=== PATIENT | female | born 1995 | race Caucasian/White ===

== ENCOUNTER 2020-07-09 19:02 | Emergency (ER) | payer MEDICAID, OTHER ==
[~2020-07-09] VITALS: Ht 175.3 cm; Wt 65.4 kg
--- NOTE | 2020-07-09 19:29 | NUR ---
THIS IS A 25F THAT COMES IN WITH HER SPOUSE. PT IS 11WKS AND HAS BEEN BLEEDING FOR A COUPLE OF DAYS. PT NOTES THAT IT HAS WORSENED TODAY AND HAS BEEN CRAMPING LIKE PERIOD CRAMPS. PT REPORTS SOME CLOTTING. PT RESTING ON KUSHAL ESTRADA
[2020-07-09 20:15] LABS: ALANINE AMINOTRANSFERASE 23 U/L (12-78); ALBUMIN 3.9 g/dL (3.4-5.0); ANION GAP 8 mmol/L (5-15); CHLORIDE 107 mmol/L (98-107); CREATININE 0.58 mg/dL (0.55-1.02)
[2020-07-09 20:18] LABS: BASOPHILS % (AUTO) 0 % (0-1); EOSINOPHILS % (AUTO) 1 % (1-7); LYMPHOCYTES % (AUTO) 29 % (22-44); MEAN CORPUSCULAR HEMOGLOBIN 32.3 pg (27.0-34.8); MEAN CORPUSCULAR HGB CONC 34.3 g/dL (32.4-35.8); MEAN PLATELET VOLUME 9.2 fL (7.4-10.4); MONOCYTES % (AUTO) 9 % (2-9); NEUTROPHILS % (AUTO) 61 % (42-75); PLATELET COUNT 200 x10^3/uL (130-400); RED BLOOD COUNT 4.19 x10^6/uL (3.82-5.3); RED CELL DISTRIBUTION WIDTH 12.1 % (9.6-15.2)
[2020-07-09 20:20] LABS: MD NO
--- NOTE | 2020-07-09 20:30 | NUR ---
PER NISA PT IS RH- AND WILL PREPARE RHOGAM
[2020-07-09 20:35] LABS: ALKALINE PHOSPHATASE 38 U/L (45-117); BILIRUBIN,TOTAL 0.5 mg/dL (0.2-1.0); TOTAL PROTEIN 7.1 g/dL (6.4-8.2)
--- NOTE | 2020-07-09 20:40 | NUR ---
US AT BEDSIDE AT THIS TIME
[2020-07-09 20:46] LABS: MICROSCOPIC INDICATED
[2020-07-09 21:34] VITALS: BP 98/65
--- NOTE | 2020-07-09 21:35 | NUR ---
ERP AT BEDSIDE FOR POC
== END 2020-07-09 22:20 | disposition home or self-care (01) ==
LOC: ED 22:13
DX: O03.4 Incomplete spontaneous abortion without complication (principal)
CPT/HCPCS: 36415; 76801; 80053; 81001; 84702; 85025; 86850; 86900; 99284; J2790